=== PATIENT | female | born 1990 | race Caucasian/White ===

== ENCOUNTER 2016-11-05 19:56 | Inpatient (IN) | payer MEDICAID ==
[~2016-11-05] VITALS: Ht 162.6 cm; Wt 63.0 kg
[2016-11-05] MEDS: LACTATED RINGER'S 1000 ML IV SCH (20:38)
[2016-11-05] MEDS ORDERED: LIDOCAINE HCL 1% 50 ML VIAL INFIL PRN (21:45)
[2016-11-05] MEDS ORDERED: CITRIC ACID-SODIUM CITRATE LIQ 30 ML UDC PO SCH (21:45)
[2016-11-05] MEDS ORDERED: ONDANSETRON HCL 4 MG/2 ML VIAL IV PUSH PRN (21:45)
[2016-11-05] MEDS ORDERED: NS 1000 ML IV PRN (21:45)
[2016-11-05] MEDS ORDERED: NS 500 ML BOLUS IV PRN (21:45)
[2016-11-05] MEDS ORDERED: LACTATED RINGER'S 1000 ML BOLUS IV PRN (21:45)
[2016-11-05] MEDS ORDERED: MINERAL OIL 10 ML VIAL TOPICAL PRN (21:45)
[2016-11-05] MEDS ORDERED: LIDOCAINE HCL 1% 50 ML VIAL I-DERMAL PRN (21:45)
[2016-11-05] MEDS ORDERED: OXYTOCIN 30 UNITS 500ML PREMIX IV ONE (21:45)
[2016-11-05 21:59] LABS: BACTERIA, URINE RARE /hpf; BLOOD, URINE SMALL (NEG); COMMENT (UR) CULT NOT INDICATED; CULTURE IF INDICATED CULT NOT INDICATED; GLUCOSE,URINE NEG (NEG); KETONE, URINE NEG (NEG); NITRITE,URINE NEG (NEG); PH, URINE 6.5 (5.0-8.5); SQUAMOUS EPITHELIAL CELL URINE 3 /hpf (0-5); URINE COLOR YELLOW (YELLW/STRAW)
[2016-11-05 22:03] VITALS: BP 114/66; PULSE 73
[2016-11-05 22:04] LABS: AUTOMATED NEUTROPHIL # 12.6 TH/MM3 (1.8-7.7); BASOPHIL # 0.1 TH/MM3 (0-0.2); BASOPHIL % 0.4 % (0.0-2.0); EOSINOPHIL # 0.1 TH/MM3 (0-0.4); EOSINOPHIL % 0.9 % (0.0-4.0); HEMO FLAGS DIFF FINAL; LYMPHOCYTE # 3.2 TH/MM3 (1.0-4.8); MEAN CELL VOLUME 91.2 FL (80.0-100.0); MEAN CORPUSCULAR HEMOGLOBIN 30.4 PG (27.0-34.0); MEAN CORPUSCULAR HGB CONC 33.4 % (32.0-36.0); MONO % 5.4 % (0.0-8.0); NEUT % 74.3 % (16.0-70.0); PLATELET COUNT 293 TH/MM3 (150-450); RED BLOOD COUNT 3.62 MIL/MM3 (4.00-5.30); RED CELL DISTRIBUTION WIDTH 13.4 % (11.6-17.2)
[2016-11-05 22:15] VITALS: RESP 18; TEMP 98.4
[2016-11-05] MEDS ORDERED: LACTATED RINGER'S 1000 ML INJ 1,000 ML IV SCH (22:45)
[2016-11-05] MEDS ORDERED: OXYTOCIN 30 UNITS/NS 500ML PREMIX IV SCH (22:45)
[2016-11-05] MEDS ORDERED: MISOPROSTOL 25 MCG SUPP VAGINAL ONE (22:45)
[2016-11-05] MEDS ORDERED: ZOLPIDEM TARTRATE 10 MG TAB PO PRN ×2 (22:45→23:00)
[2016-11-05] MEDS ORDERED: ACETAMINOPHEN 325 MG TAB PO PRN ×2 (22:45→23:00)
[2016-11-05] MEDS ORDERED: NS 1000 ML OTHER PRN (23:00)
[2016-11-06] VITALS (64 sets, daily range): BP systolic 93–117; BP diastolic 40–68; PULSE 56–111; RESP 15–20; TEMP 98–98.9
--- NOTE | 2016-11-06 07:51 | PD.LABORPN ---
Subjective Subjective feeling no real contractions or change overnight; no leakage of fluid, endorses good FM Objective Objective Pelvic Exam: Cervix: [posterior] Dilatation: [3] Effacement: [90] Station: [-1] Presentation: [vtx, ballotable] Membranes: [intact] Uterine Contractions: [irreg] FHT's: Category: [I] Baseline: [130s] Reactive: [y] Variability: [y] Decels: [n] Weeks Gestation: 39 Gest Age Assessed Date: Nov 06, 2016 Gest Age Assessed Time: 07:45 Pt started active labor?: No Medical induction of labor?: Yes Medical induction start date: Nov 05, 2016 Medical induction start time: 23:00 Artificial rupture of membrane: No Assessment/Plan Assessment and Plan 26 yo G1 w clark IUP at 39w5d admit overnight for term IOL due to IUGR 1) IOL: was given single dose vaginal cytotec 25mcg overnight, this AM not much change in SVE from 2/70/-1 to 90/-1; will start pitocin, AROM if needed, anticipate 2) IUGR: risk factors tobacco use & marijuana use; UDS +MJ on admission; pt has had weekly testing in office since 36 wks with normal dopplers 3) MJ use: aware, pt was counseled throughout to quit, UDS remains + 4) status: vtx, male, Cat I tracing Janee Mitchell MD Nov 06, 2016 07:51
[2016-11-06] MEDS ORDERED: OXYTOCIN 30 UNITS-500ML PREMIX 500 ML IV SCH ×2 (08:00→19:45)
--- NOTE | 2016-11-06 09:15 | HHI.HP ---
HPI Chief Complaint iugr Date Seen: Nov 05, 2016 Travel History International Travel<30 Days: No Contact w/Intl Traveler<30Days: No Known Affected Area: No History of Present Illness HPI PT is a 26 yo G1 with iup at 39w5d admitted for iol for iugr. She has had normal weekly dopplers and bpp. BPP 8/8 at office visit. Good FM, irreg Ctx, no lof or vb. care c/b tobacco use (still using 1/2ppd), MJ use, chronic low back pain, and right breast lump. Breast biopsied 2 weeks ago, benign lactating adenoma with sclerosing adenosis. On testing, left EIF noted; declined quad screen. Weeks Gestation: 39 Para: 0 : 1 Last Menstrual Period: Feb 02, 2016 Miscarriage: 0 : 0 History Past Medical History Narrative Medical chronic low back pain, possible arthritis vs compression fx diagnosed by chiropractor (pt does not know name of doctor to request records) kidney stones oral surgery Obstetric History Obstetric History g1 Past Surgical History Narrative Surgical oral surgery Family History Family History: Negative Social History Alcohol Use: No Tobacco Use: Yes Substance Abuse: Yes (marijuana) Allergies-Medications (Allergen,Severity, Reaction): Coded Allergies: No Known Allergies (Verified Allergy, Unknown, 11/05/16) Review of Systems General / Constitutional: No: Fever, Weight Gain, Chills, Other Eyes: No: Diploplia, Blurred Vision, Visual changes, Pain, Photophobia HENT: No: Headaches, Vertigo, Lightheadedness Cardiovascular: No: Irregular Rhythm, Chest Pain or Discomfort, Palpitations, Tachycardia, Syncope, Varicosities, Edema, Cyanosis Respiratory: No: Cough, Short of Breath, Other Gastrointestinal: No: Nausea, Vomiting, Diarrhea Genitourinary: No: Decreased Urinary Output, Oliguria Musculoskeletal: Pain (back pain), No: Limited ROM, Weakness, Cramping, Edema Skin: No Rash, No Itching, No Dryness, No Lumps, No Change in Pigmentation, No Change in Nails, No Alopecia, No Lesions Neurologic: No: Weakness, Dizziness, Syncope, Focal Abnormalities, Coordination Problem, Headache, Slurred Speech, Seizures Psychiatric: No: Depression, Suicidal Ideations, Homicidal Ideation Endocrine: No: Heat Intolerance, Cold Intolerance, Polydipsia, Polyuria, Other Physical Exam Narrative GENERAL: Well-nourished, well-developed patient. SKIN: Warm and dry. HEAD: Normocephalic and atraumatic. EYES: No scleral icterus. No injection or drainage. ENT: No nasal drainage noted. Mucous membranes pink. Airway patent. NECK: Supple, trachea midline. No JVD. CARDIOVASCULAR: Regular rate and rhythm without murmurs, gallops, or rubs. RESPIRATORY: Breath sounds equal bilaterally. No accessory muscle use. BREASTS: Bilateral exam showed no masses , no retractions, no nipple discharge. small bruise from biopsy, healing well. ABDOMEN/GI: Abdomen soft, non-tender, bowel sounds present, no rebound, no guarding Gravid to35 weeks size GENITOURINARY: External Genitalia: intact and normal in appearance BUS glands: [-] Cervix:3-4/80/-1 Presentation:[facility] Membranes: [intact Uterine Contractions: irreg FHT's: BPP 8/8 in office, dopplers normal EXTREMITIES: No cyanosis or edema. BACK: Nontender without obvious deformity. No CVA tenderness. NEUROLOGICAL: Awake and alert. Motor and sensory grossly within normal limits. Five out of 5 muscle strength in all muscle groups. Normal speech. Caprini VTE Risk Assessment Caprini VTE Risk Assessment: No/Low Risk (score <= 1) Caprini Risk Assessment Model Point Value = 1 Point Value = 2 Point Value = 3 Point Value = 5 Age 41-60 Minor surgery BMI > 25 kg/m2 Swollen legs Varicose veins or History of unexplained or recurrent spontaneous Oral contraceptives or hormone replacement Sepsis (< 1 month) Serious lung disease, including pneumonia (< 1 month) Abnormal pulmonary function Acute myocardial infarction Congestive heart failure (< 1 month) History of inflammatory bowel disease Medical patient at bed rest Age 61-74 Arthroscopic surgery Major open surgery (> 45 min) Laparoscopic surgery (> 45 min) Malignancy Confined to bed (> 72 hours) Immobilizing plaster cast Central venous access Age >= 75 History of VTE Family history of VTE Factor V Leiden Prothrombin [id number] Lupus anticoagulant Anticardiolipin antibodies Elevated serum homocysteine Heparin-induced thrombocytopenia Other congenital or acquired thrombophilia Stroke (< 1 month) Elective arthroplasty Hip, pelvis, or leg fracture Acute spinal cord injury (< 1 month) Prophylaxis Regimen Total Risk Factor Score Risk Level Prophylaxis Regimen 0-1 Low Early ambulation 2 Moderate Order ONE of the following: *Sequential Compression Device (SCD) *Heparin 5000 units SQ BID 3-4 Higher Order ONE of the following medications: *Heparin 5000 units SQ TID *Enoxaparin/Lovenox 40 mg SQ daily (WT < 150 kg, CrCl > 30 mL/min) *Enoxaparin/Lovenox 30 mg SQ daily (WT < 150 kg, CrCl > 10-29 mL/min) *Enoxaparin/Lovenox 30 mg SQ BID (WT < 150 kg, CrCl > 30 mL/min) AND/OR *Sequential Compression Device (SCD) 5 or more Highest Order ONE of the following medications: *Heparin 5000 units SQ TID (Preferred with Epidurals) *Enoxaparin/Lovenox 40 mg SQ daily (WT < 150 kg, CrCl > 30 mL/min) *Enoxaparin/Lovenox 30 mg SQ daily (WT < 150 kg, CrCl > 10-29 mL/min) *Enoxaparin/Lovenox 30 mg SQ BID (WT < 150 kg, CrCl > 30 mL/min) AND *Sequential Compression Device (SCD) Data Data Vital Signs Reviewed: Yes Orders Orders Admit To Inpatient (11/05/16 ) Vital Signs (Adult) .Per protocol (11/05/16 21:00) Activity Oob Ad Blanche (11/05/16 21:00) Heart (11/05/16 21:00) Amnioinfusion (11/05/16 21:00) Urinary Catheter Management .ONCE (11/05/16 21:00) Diet Liquid (11/06/16 Breakfast) Complete Blood Count With Diff (11/05/16 21:00) Hold Clot (11/05/16 21:00) Abo/Rh Blood Type (11/05/16 21:00) Urinalysis - C+S If Indicated (11/05/16 21:00) Resp Oxygen Non Rebreathe Mask (11/05/16 ) ^ Epidural / Intrathecal Infus (11/05/16 21:00) Ob/Psych Drug Screen, Urine (11/05/16 21:05) Lidocaine 1% Inj (50 Ml) (Xylocaine 1% I (11/05/16 21:45) Citric Acid-Sodium Citrate Liq (Bicitra (11/05/16 21:45) Ondansetron Inj (Zofran Inj) (11/05/16 21:45) Fentanyl Inj (Fentanyl Inj) (11/05/16 21:45) Fentanyl Inj (Fentanyl Inj) (11/05/16 21:45) Oxytocin 30 Units-500ml Premix (Pitocin (11/05/16 21:45) Lidocaine 1% Inj (50 Ml) (Xylocaine 1% I (11/05/16 21:45) Light Mineral Oil (Muri-Lube Oil) (11/05/16 21:45) Lactated Ringer's 1000 Ml Inj (Lr 1000 M (11/05/16 21:45) Lactated Ringer's 1000 Ml Inj (Lr 1000 M (11/05/16 21:45) Sodium Chlorid 0.9% 500 Ml Inj (Ns 500 M (11/05/16 21:45) Sodium Chlor 0.9% 1000 Ml Inj (Ns 1000 M (11/05/16 21:45) Admit To Inpatient (11/05/16 ) Activity Oob Ad Blanche (11/05/16 21:59) ^ Labor Induction (11/05/16 21:59) ^ Vaginal Insert (11/05/16 21:59) ^ Vaginal Lavage (11/05/16 21:59) Heart (11/05/16 21:59) Oxytocin 30 Units-500ml Premix (Pitocin (11/05/16 22:45) Lactated Ringer's 1000 Ml Inj (Lr 1000 M (11/05/16 22:45) Misoprostol Supp (Cytotec Supp) (11/05/16 22:45) Sodium Chloride 0.9% Flush (Ns Flush) (11/06/16 00:00) Sodium Chloride 0.9% Flush (Ns Flush) (11/06/16 00:00) Sodium Chlor 0.9% 1000 Ml Inj (Ns 1000 M (11/05/16 23:00) Acetaminophen (Tylenol) (11/05/16 22:45) Zolpidem (Ambien) (11/05/16 22:45) ^ Non Stress Test (11/06/16 07:46) Response To Medication .Post New Med Administration, Reaction (11/06/16 07:46) ^ Discontinue Medication (11/06/16 07:46) Oxytocin 30 Units-500ml Premix (Pitocin (11/06/16 08:00) Labs Laboratory Tests Test 11/05/16 20:41 White Blood Count 17.0 Red Blood Count 3.62 Hemoglobin 11.0 Hematocrit 33.0 Mean Corpuscular Volume 91.2 Mean Corpuscular Hemoglobin 30.4 Mean Corpuscular Hemoglobin Concent 33.4 Red Cell Distribution Width 13.4 Platelet Count 293 Mean Platelet Volume 8.8 Neutrophils (%) (Auto) 74.3 Lymphocytes (%) (Auto) 19.0 Monocytes (%) (Auto) 5.4 Eosinophils (%) (Auto) 0.9 Basophils (%) (Auto) 0.4 Neutrophils # (Auto) 12.6 Lymphocytes # (Auto) 3.2 Monocytes # (Auto) 0.9 Eosinophils # (Auto) 0.1 Basophils # (Auto) 0.1 CBC Comment DIFF FINAL Differential Comment Urine Color YELLOW Urine Turbidity CLEAR Urine pH 6.5 Urine Specific [place] 1.017 Urine Protein TRACE Urine Glucose (UA) NEG Urine Ketones NEG Urine Occult Blood SMALL Urine Nitrite NEG Urine Bilirubin NEG Urine Urobilinogen LESS THAN 2.0 Urine Leukocyte Esterase SMALL Urine RBC 5 Urine WBC 3 Urine Squamous Epithelial Cells 3 Urine Bacteria RARE Microscopic Urinalysis Comment CULT NOT INDICATED Urine Opiates Screen NEG Urine Barbiturates Screen NEG Urine Amphetamines Screen NEG Urine Benzodiazepines Screen NEG Urine Cocaine Screen NEG Urine Cannabinoids Screen POS Assessment/Plan Problem List: (1) IUGR (intrauterine growth restriction) affecting care of mother ICD Codes: O36.5990 - Maternal care for other known or suspected poor growth, unspecified trimester, not applicable or unspecified Status: Chronic Qualifiers: (2) Chronic low back pain ICD Codes: M54.5 - Low back pain; G89.29 - Other chronic pain Status: Chronic (3) Tobacco abuse ICD Codes: Z72.0 - Tobacco use Status: Chronic (4) Marijuana abuse ICD Codes: F12.10 - Cannabis abuse, uncomplicated Status: Chronic Assessment and Plan 26 yo G1 with iup at 39w5d admitted for iol for iugr 1) iugr- last u/s 10/29 efw 5 lb 15 oz. normal weekly dopplers and bpp 2) iol- cervical ripening agent over night, then pit arom as needed 3) chronic low back pain- arthritis vs compression fracture, uncertain which vertebrae, does not recall chiropractor name to request records. Discussed may not be a candidate for epidural if records not available; will be at discretion of anesthesia team 4) Tob/mj use- encourage cessation. may contributed to iugr. 5) Gbs neg 6) fetus - cephalic,l ast u/s 10/29 efw 5 lb 15 oz. Small EIF on wk u/s; declined quad screen Sheridan Daniel MD Nov 06, 2016 09:15
[2016-11-06] MEDS: LACTATED RINGER'S 1000 ML IV SCH (11:01)
[2016-11-06] MEDS ORDERED: fentaNYL 2MCG-BUPIV 0.125% INJ 100 ML ONE (12:19)
[2016-11-06] MEDS ORDERED: ePHEDrine/NS 25 MG/5 ML SYR ONE (12:20)
--- NOTE | 2016-11-06 13:54 | HHI.PR ---
DISPENSARY ATTENDANT Note Note to bedside to evaluate pt, recently received epidural, much more comfortable SVE 4-5/-1, AROM'd clear, cervix still very posterior, attempted IUPC but kept coiling, FSE successfully placed low baseline FHTs 110s but reactive without decels, continue to monitor closely continue active mgmt Janee Mitchell MD Nov 06, 2016 13:54
[2016-11-06] MEDS ORDERED: DIPHTH/TETANUS/ACEL PERTUSSIS (BOOSTER) 0.5 ML VIAL/PFS IM ONE (16:00)
[2016-11-06] MEDS ORDERED: MEASLES, MUMPS, RUBELLA VACCINE 0.5 ML VIAL SQ ONE (16:00)
--- NOTE | 2016-11-06 16:04 | HHI.PR ---
TYPING CHECKER Note Note To bedside to evaluate pt SVE /1, cervix more anterior this check continue active mgmt suspect OP presentation Janee Mitchell MD Nov 06, 2016 16:04
[2016-11-06] MEDS ORDERED: ePHEDrine/NS 25 MG/5 ML SYR IV PUSH PRN (17:00)
[2016-11-06] MEDS ORDERED: NO SYSTEM NARCOTICS PRN (17:00)
[2016-11-06] MEDS ORDERED: fentaNYL 2MCG-BUPIV 0.125% 100 ML EPIDURAL SCH (17:00)
[2016-11-06] MEDS ORDERED: DO NOT ADMINISTER ANTICOAGULANTS PRN (17:00)
--- NOTE | 2016-11-06 18:52 | PD.OB.DELI ---
Weeks gestation: 39 Gest age assessed date: Nov 06, 2016 Gest age assessed time: 07:45 Pt started active labor?: No Medical induction of labor?: Yes Medical induction start date: Nov 05, 2016 Medical induction start time: 23:00 Artificial rupture of membrane: Yes Anesthesia: Epidural Episiotomy: Midline Vaginal Delivery: Normal Presentation: Occiput anterior Nuchal Cord: None Delayed cord clamping (45 sec): Yes : Male, Single Delivery date: Nov 06, 2016 Delivery time: 18:34 One Minute : 7 Five Minute : 9 Weight: 6#5oz Placenta: Spontaneous delivery, Intact, 3 vessel cord Laceration: Perineal laceration, 2 deg Estimated blood loss: 300mL Janee Mitchell MD Nov 06, 2016 18:52
[2016-11-06] MEDS ORDERED: oxyCODONE/ACETAMINOPHEN 5 MG/325 MG TAB PO PRN ×2 (19:45)
[2016-11-06] MEDS ORDERED: ONDANSETRON ODT 4 MG TAB PO PRN (19:45)
[2016-11-06] MEDS ORDERED: ALUMINUM/MAGNESIUM/SIMETH 30 ML CUP PO PRN (19:45)
[2016-11-06] MEDS ORDERED: SODIUM CHLORIDE 0.9% FLUSH 10 ML FLUSH IV FLUSH PRN ×3 (19:45)
[2016-11-06] MEDS ORDERED: WITCH HAZEL 50%/GLYCERIN 12.5% 40 PAD JAR TOPICAL PRN (19:45)
[2016-11-06] MEDS ORDERED: ZOLPIDEM TARTRATE 5 MG TAB PO PRN (19:45)
[2016-11-06] MEDS ORDERED: BENZOCAINE 20% TOPICAL SPRAY 60 ML CAN TOPICAL PRN (19:45)
[2016-11-06] MEDS: IBUPROFEN 600 MG TAB PO PRN (20:06)
[2016-11-06] MEDS ORDERED: SODIUM CHLORIDE 0.9% FLUSH 10 ML FLUSH IV FLUSH SCH (21:00)
[2016-11-07 08:10] VITALS: BP 103/60; PULSE 64; RESP 16; TEMP 98
[2016-11-07] MEDS: DOCUSATE SODIUM 50 MG/SENNA 8.6 MG TAB PO PRN ×2 (08:57→23:00)
[2016-11-07] MEDS: IBUPROFEN 600 MG TAB PO PRN ×3 (08:57→23:02)
[2016-11-07] MEDS: ACETAMINOPHEN 325 MG TAB PO PRN ×3 (08:57→23:01)
--- NOTE | 2016-11-07 10:14 | HHI.OB ---
Subjective Post Day: 1 Remarks s/p uncomplicated of male "Armando" Objective Vitals/I&O Vital Signs Date Time Temp Pulse Resp B/P (MAP) Pulse Ox O2 Delivery O2 Flow Rate FiO2 11/06/16 21:30 107/59 (75) 11/06/16 21:30 98.0 65 16 11/06/16 20:30 66 107/58 (74) 11/06/16 20:15 65 112/65 (81) 11/06/16 20:07 16 11/06/16 20:00 66 111/53 (72) 11/06/16 19:45 78 110/56 (74) 11/06/16 19:30 98.9 15 11/06/16 19:30 76 108/56 (73) 11/06/16 19:15 76 102/49 (66) 11/06/16 19:00 83 115/60 (78) 11/06/16 18:50 18 11/06/16 18:46 81 97/62 (74) 11/06/16 18:31 72 112/40 (64) 11/06/16 18:16 75 108/43 (64) 11/06/16 18:01 75 100/46 (64) 11/06/16 17:45 67 104/55 (71) 11/06/16 17:30 65 100/59 (73) 11/06/16 17:15 81 97/67 (77) 11/06/16 17:00 67 102/58 (73) 11/06/16 16:46 84 95/54 (68) 11/06/16 16:45 20 11/06/16 16:30 65 107/54 (71) 11/06/16 16:15 69 114/56 (75) 11/06/16 16:04 69 97/52 (67) 11/06/16 16:00 75 11/06/16 15:45 65 100/58 (72) 11/06/16 15:30 67 104/49 (67) 11/06/16 15:15 74 115/47 (69) 11/06/16 15:00 66 103/54 (70) 11/06/16 14:51 98.3 18 11/06/16 14:45 74 97/58 (71) 11/06/16 14:30 65 105/56 (72) 11/06/16 14:15 70 105/56 (72) 11/06/16 14:00 63 103/52 (69) 11/06/16 13:52 16 11/06/16 13:45 70 108/58 (75) 11/06/16 13:30 75 109/58 (75) 11/06/16 13:15 67 101/53 (69) 11/06/16 13:01 74 11/06/16 12:56 72 107/50 (69) 11/06/16 12:55 111 11/06/16 12:50 68 105/43 (63) 11/06/16 12:50 73 11/06/16 12:45 70 117/48 (71) 11/06/16 12:45 66 11/06/16 12:43 75 111/63 (79) 11/06/16 12:40 66 97/46 (63) 11/06/16 12:40 66 11/06/16 12:37 71 101/54 (70) 11/06/16 12:35 68 11/06/16 12:33 66 107/53 (71) 11/06/16 12:30 16 11/06/16 12:30 79 11/06/16 12:30 75 106/68 (81) 11/06/16 12:00 56 107/60 (76) 11/06/16 11:31 65 108/59 (75) 11/06/16 11:00 65 100/56 (71) 11/06/16 10:30 65 102/53 (69) Objective Remarks GENERAL: Well-nourished, well-developed patient. CARDIOVASCULAR: Regular rate and rhythm without murmurs, gallops, or rubs. RESPIRATORY: Breath sounds equal bilaterally. No accessory muscle use. ABDOMEN/GI: Abdomen soft, non-tender. Fundus: Firm, non-tender at umbilicus. GENITOURINARY: Light bleeding. EXTREMITIES: No cyanosis or edema, non-tender, without signs of DVT. Medications and IVs Current Medications Medications (Trade) Dose Ordered Sig/Ashley Route Start Time Stop Time Status Last Admin (NS Flush) 2 ml BID IV FLUSH 11/06/16 21:00 (NS Flush) 2 ml UNSCH PRN IV FLUSH 11/06/16 19:45 (Tylenol) 650 mg Q4H PRN PO 11/06/16 19:45 11/07/16 08:57 (Motrin) 600 mg Q6H PRN PO 11/06/16 19:45 11/07/16 08:57 (Percocet 5-325 Mg) 1 tab Q4H PRN PO 11/06/16 19:45 (Percocet 5-325 Mg) 2 tab Q4H PRN PO 11/06/16 19:45 (Americaine 20% Top Spr) 1 spray Q4H PRN TOPICAL 11/06/16 19:45 11/07/16 05:37 (Tucks Pads) 1 applic QID PRN TOPICAL 11/06/16 19:45 11/07/16 05:37 (Heidi-Colace) 2 tab Q12H PRN PO 11/06/16 19:45 11/07/16 08:57 (Ambien) 5 mg HS PRN PO 11/06/16 19:45 (Mag-Al Plus Susp Liq) 15 ml Q8H PRN PO 11/06/16 19:45 (Zofran Odt) 4 mg Q6H PRN PO 11/06/16 19:45 Assessment/Plan Problem List: (1) (spontaneous vaginal delivery) ICD Codes: O80 - Encounter for full-term uncomplicated delivery (2) IUGR (intrauterine growth restriction) affecting care of mother ICD Codes: O36.5990 - Maternal care for other known or suspected poor growth, unspecified trimester, not applicable or unspecified Status: Chronic Qualifiers: (3) Chronic low back pain ICD Codes: M54.5 - Low back pain; G89.29 - Other chronic pain Status: Chronic (4) Tobacco abuse ICD Codes: Z72.0 - Tobacco use Status: Chronic (5) Marijuana abuse ICD Codes: F12.10 - Cannabis abuse, uncomplicated Status: Chronic Assessment and Plan PPD#1 routine supportive care anticipate d/c to home tmrw gave information on FP clinic for infant's circumcision, encourage to call to schedule Janee Mitchell MD Nov 07, 2016 10:14
[2016-11-07 17:00] VITALS: TEMP 98.6
[2016-11-07 20:10] VITALS: BP 94/65; PULSE 68; RESP 16; TEMP 98.2
[2016-11-08] MEDS: ACETAMINOPHEN 325 MG TAB PO PRN ×2 (05:30→11:59)
[2016-11-08] MEDS: IBUPROFEN 600 MG TAB PO PRN ×2 (05:31→11:59)
[2016-11-08 08:10] VITALS: BP 95/62; PULSE 62; RESP 18; TEMP 97.9
--- NOTE | 2016-11-08 09:40 | HHI.OB ---
Subjective Post Day: 2 Objective Vitals/I&O Vital Signs Date Time Temp Pulse Resp B/P (MAP) Pulse Ox O2 Delivery O2 Flow Rate FiO2 11/08/16 08:10 95/62 (73) 11/08/16 08:10 97.9 62 18 11/07/16 20:10 98.2 68 16 94/65 (75) 11/07/16 17:00 98.6 Objective Remarks GENERAL: Well-nourished, well-developed patient. CARDIOVASCULAR: Regular rate and rhythm without murmurs, gallops, or rubs. RESPIRATORY: Breath sounds equal bilaterally. No accessory muscle use. ABDOMEN/GI: Abdomen soft, non-tender. Fundus: Firm, non-tender at umbilicus. GENITOURINARY: Light bleeding. EXTREMITIES: No cyanosis or edema, non-tender, without signs of DVT. Medications and IVs Current Medications Medications (Trade) Dose Ordered Sig/Ashley Route Start Time Stop Time Status Last Admin (NS Flush) 2 ml BID IV FLUSH 11/06/16 21:00 (NS Flush) 2 ml UNSCH PRN IV FLUSH 11/06/16 19:45 (Tylenol) 650 mg Q4H PRN PO 11/06/16 19:45 11/08/16 05:30 (Motrin) 600 mg Q6H PRN PO 11/06/16 19:45 11/08/16 05:31 (Percocet 5-325 Mg) 1 tab Q4H PRN PO 11/06/16 19:45 (Percocet 5-325 Mg) 2 tab Q4H PRN PO 11/06/16 19:45 (Americaine 20% Top Spr) 1 spray Q4H PRN TOPICAL 11/06/16 19:45 11/07/16 05:37 (Tucks Pads) 1 applic QID PRN TOPICAL 11/06/16 19:45 11/07/16 05:37 (Heidi-Colace) 2 tab Q12H PRN PO 11/06/16 19:45 11/07/16 23:00 (Ambien) 5 mg HS PRN PO 11/06/16 19:45 (Mag-Al Plus Susp Liq) 15 ml Q8H PRN PO 11/06/16 19:45 (Zofran Odt) 4 mg Q6H PRN PO 11/06/16 19:45 Assessment/Plan Problem List: (1) (spontaneous vaginal delivery) ICD Codes: O80 - Encounter for full-term uncomplicated delivery (2) IUGR (intrauterine growth restriction) affecting care of mother ICD Codes: O36.5990 - Maternal care for other known or suspected poor growth, unspecified trimester, not applicable or unspecified Status: Chronic Qualifiers: (3) Chronic low back pain ICD Codes: M54.5 - Low back pain; G89.29 - Other chronic pain Status: Chronic (4) Tobacco abuse ICD Codes: Z72.0 - Tobacco use Status: Chronic (5) Marijuana abuse ICD Codes: F12.10 - Cannabis abuse, uncomplicated Status: Chronic Assessment and Plan PPD#2 routine supportive care d/c home today give information on FP clinic for 's circumcision, encourage to call to schedule Discharge Planning today Janee Mitchell MD Nov 08, 2016 09:40
[2016-11-08] MEDS ORDERED: IBUP-232 PO (09:42)
[2016-11-08] MEDS ORDERED: SENN1TAB PO (09:42)
--- NOTE | 2016-11-08 09:42 | HHI.DCPOC ---
Discharge Care Plan Diagnosis: (1) (spontaneous vaginal delivery) Your Health Problems Are: Vaginal delivery Report Symptoms to Your Doctor -Temperature above 100.5 degrees -Redness, of incision or excessive or foul smelling drainage -Unusual pain or calf pain -Increased vaginal bleeding -Painful or difficulty urinating -Feelings of extreme sadness or anxiety after 2 weeks Goals to Promote Your Health * To prevent worsening of your condition and complications * To maintain your health at the optimal level Directions to Meet Your Goals Take your medications as prescribed Follow your dietary instruction Follow activity as directed Ensure plenty of rest for recovery Drink fluids for hydration Keep your appointments as scheduled Take your immunizations and boosters as scheduled If your symptoms worsen call your PCP, if no PCP go to Urgent Care Center or Emergency Room Smoking is Dangerous to Your Health. Avoid second hand smoke Call the 24-hour crisis hotline for domestic abuse at Janee Mitchell MD Nov 08, 2016 09:42
[2016-11-11 09:33] LABS: BATH SALTS (MDPV) UR NEG (NEG); ECSTASY (MDMA) UR NEG (NEG); GABAPENTIN UR NEG (NEG); HEROIN (6-ACETYLMORPHINE) UR NEG (NEG); K2 SPICE UR NEG (NEG); OBMETHADONE UR NEG (NEG); PHENCYCLIDINE URINE NEG (NEG)
[2016-11-11 09:34] LABS: HYDROMORPHONE U NEG (NEG)
== END 2016-11-08 15:55 | disposition home or self-care (01) | DRG 775 ==
LOC: H2EA 19:56 → H1EA 11-06 20:40
PROVIDERS: ADMIT Obstetrics & Gynecology; ATTEND Obstetrics & Gynecology
PROC: 10907ZC Drainage of Amniotic Fluid, Therapeutic from Products of Conception, Via Natural or Artificial Opening (ICD-10-PCS; principal; 2016-11-06)
PROC: 10E0XZZ Delivery of Products of Conception, External Approach (ICD-10-PCS; 2016-11-06)
PROC: 0KQM0ZZ Repair Perineum Muscle, Open Approach (ICD-10-PCS; 2016-11-06)
PROC: 0W8NXZZ Division of Female Perineum, External Approach (ICD-10-PCS; 2016-11-06)
PROC: 00HU33Z Insertion of Infusion Device into Spinal Canal, Percutaneous Approach (ICD-10-PCS; 2016-11-06)
PROC: 3E0R3BZ Introduction of Anesthetic Agent into Spinal Canal, Percutaneous Approach (ICD-10-PCS; 2016-11-06)
DX: O36.5930 Maternal care for other known or suspected poor fetal growth, third trimester, not applicable or unspecified (principal); O99.324 Drug use complicating childbirth; F17.210 Nicotine dependence, cigarettes, uncomplicated; Z37.0 Single live birth; O99.334 Smoking (tobacco) complicating childbirth; Z3A.39 39 weeks gestation of pregnancy; G89.29 Other chronic pain; F12.10 Cannabis abuse, uncomplicated; M54.5 Low back pain; Z87.442 Personal history of urinary calculi; N63.10 Unspecified lump in the right breast, unspecified quadrant; O70.1 Second degree perineal laceration during delivery
CPT/HCPCS: 80307; 81001; 83030; 85025; 85461; 86850; 86900; 86901; 90384; 90715; G0481; J2590; J2790; J3010; J7120